=== PATIENT | male | born 1990 | race African-American/Black ===

== ENCOUNTER 2023-01-16 08:15 | Emergency (ER) | payer SELFPAY ==
--- OUTSIDE RECORDS SUMMARY | 2023-01-16 08:19 | XMS REPORT | Continuity of Care Document ---
:1990 Author Organization [facility] t Address [address] [facility] [address] [place] [address] Care Team Providers Name Role Phone PCP, PATIENT DOES NOT HAVE A Primary Care Physician Unavaila ble ANA MARIA TAVAREZ Attending Clinician Unavailable Ana Maria Perez Attending Clinician ANA MARIA TAVAREZ Admitting Clinician Unavailable Payers Payer Name Policy Type Policy Number Effective Date Expiration Date Teri thornton CIGNA II [id number] 2021 00:00:00 Problems Condition Condition Condition Status Onset Resolution Last Treating Co mments Source Name Details Category Date Date Treatment Clinician Date Left knee Left knee Disease Active Uni vers pain pain 4-05 ity of 00:00: [address] Other Other Disease Active Overview: Univer s specified specified 02-28 Formattin i ty of general general 00:00: g of this [facility] 00 note Medical examinatio examinatio might be Branch n n different from the original. Initial male exam Allergies, Adverse Reactions, Alerts Allergy Allergy Status Severity Reaction(s) Onset Inactive Treating Comm ents Source Name Type Date Date Clinician NO KNOWN Drug Active Univers ALLERGIE Class ity of S [facility] Social History Social Habit Start Date Stop Date Quantity Comments Source History of Smokes tobacco University of tobacco use daily [facility] Exposure to 2022-07-20 2022-07-30 Unable to assess Univers ity of SARS-CoV-2 00:00:00 18:25:00 [facility] (event) Branch Alcohol intake 2022-07-30 2022-07-30 0 /d University of 00:00:00 00:00:00 [facility] Sex Ass[birth year] Universit y of 00:00:00 00:00:00 [facility] Smoking Status Start Date Stop Date Source Smokes tobacco daily [facility] Medications Ordered Filled Start Stop Current Ordering Indication Dosage Frequency Signature Comments Components Source Medication Medication Date Date Medication? Clinician (SIG) Name Name NaCl 0.9% 2021-08 1000mL at 999 Uni vers (NS) bolus 2-05 12-05 mL/hr, ity of infusion 03:00: 03:34 1,000 mL, Toñito as 1,000 mL 00 :00 IV Medical Infusion, Branch ONCE, 1 dose, On 07/30/22 at 2100, STAT acetaminoph 2015- Yes 1{tbl} Take 1 Tab Univers en-codeine 4-05 by mouth ity o f (TYLENOL 10:03: every 4 [facility]3) 300-30 46 (four) Medical mg tablet hours as Branch needed. Vital Signs Vital Name Observation Time Observation Value Comments Source Systolic blood 2022-07-31 03:00:00 147 mm[Hg] Univer sity [facility] Diastolic blood 2022-07-31 03:00:00 88 [facility]Hg[facility] 2022-07-31 03:00:00 83 /min [facility] Respiratory rate 2022-07-31 03:00:00 17 /min [facility] saturation in 2022-07-31 03:00:00 98 /min [facility] Arterial blood by [facility] Pulse oximetry Branch Body height 2022-07-31 00:37:00 177.8 cm [facility] Body weight 2022-07-31 00:37:00 90.719 kg [facility] BMI 2022-07-31 00:37:00 28.70 kg/m2 [facility] Procedures Procedure Date / Time Performed Performing Clinician Sourc e XR CHEST 1 VW 2022-07-31 02:11:11 Ana Maria Tavarez [facility] TROPONIN I 2022-07-31 02:03:00 Ana Maria Tavarez [facility] COMP. METABOLIC PANEL 2022-07-31 02:03:00 Ana Maria Tavarez [facility] ([id number]) Medical Branch CBC WITH DIFF 2022-07-31 02:03:00 Ana Maria Tavarez [place] [facility] N-TERMINAL PRO-BNP 2022-07-31 02:03:00 [facility] NOTICE OF PRIVACY 2022-07-31 00:28:15 Doctor Unassigned, No Univ [facility] Name Medical Branch CONSENT/REFUSAL FOR 2022-07-31 00:26:10 Doctor Unassigned, No [facility] DIAGNOSIS AND Name Medical Branch TREATMENT Encounters Start End Encounter Admission Attending Care Care Encounter Source Date/Time Date/Time Type Type Clinicians Facility Department ID 2022-07-30 2022-07-30 Emergency X CORBY TNALMAS ERT [id number] Univers 18:40:00 21:36:00 [facility]-07-30 2022-07-30 Emergency Corby [facility] [id number] Univers 18:40:00 21:36:00 Ana Maria Williamson [facility] [id number] i [facility] [id number] [facility] [id number] [place] [id number] Branch Results Test Description Test Time Test Comments Results Result Comments Source N-TERMINAL PRO-BNP 2022-07-31 02:52:54 Test Item Value Reference Range Interpretation Comme nts NT-proBNP (test code = See_Comment [Aut omated message] The [id number]) system which ge nerated this result tra nsmitted reference range : <=125. The reference r tavo was not used to int erpret this result as sterling l/abnormal. BROCK (test code = BROCK) Biotin has been reported to cause a negative bias, interpret results relative to patient's use of biotin. Lab Interpretation (test Normal code = 40836-0) [id number]:38[facility]49 Test Item Value Reference Interpretation Comments Range TROPONIN I (test 0.003 ng/mL See_Comment [Automated code = 3852882396) message] The system which generated this result transmitted reference range : <=0.034. The reference range was not used to interpret this result as normal/abnormal . BROCK (test code = Reference (Normal) BROCK) Range (defined by the 99th percentile reference limit): <= 0.034 ng/mL Note: Cardiac troponin begins to rise 3-4 hours after the onset of ischemia. Repeat in 4-6 hours if the sample was drawn within 3-4 hours of the onset of the symptom and found normal. Diagnosis of myocardial injury is made with acute changes in cTn concentrations with at least one serial sample above the 99th percentile upper reference limit (URL), taken together with the patient's clinical presentation. Biotin has been reported to cause a negative bias, interpret results relative to patient's use of biotin. Lab Interpretation Normal (test code = 60037-8) [facility]. METABOLIC PANEL ([id number])2022-07-31 02:26:49 Test Item Value Reference Range Interpretation Comments NA (test code = 138 mmol/L 135-145 2397000328) K (test code = 4.0 mmol/L 3.5-5.0 5424533279) CL (test code = 100 mmol/L 98-108 4175230213) CO2 TOTAL (test code = 32 mmol/L 23-31 H 7130031735) AGAP (test code = 2-16 8971705740) BUN (test code = 10 mg/dL 7-23 9560893265) GLUCOSE (test code = 87 mg/dL 70-110 2683493272) CREATININE (test code = 0.96 mg/dL 0.60-1.25 2556507992) TOTAL BILI (test code = 0.5 mg/dL 0.1-1.2 2646870267) CALCIUM (test code = 10.1 mg/dL 8.6-10.6 0232023225) T PROTEIN (test code = 7.9 g/dL 6.3-8.2 3176912491) ALBUMIN (test code = 5.0 g/dL 3.5-5.0 4916009856) ALK PHOS (test code = 88 U/L 34-122 4745811304) ALTv (test code = 27 U/L 5-50 1742-6) AST(SGOT) (test code = 25 U/L 13-40 2061294960) eGFR (test code = mL/min/1.73m2 8195847040) BROCK (test code = BROCK) Association of Glomerular Filtration Rate (GFR) and Staging of Kidney Disease* + --+ --+ ------+| GFR (mL/min/1.73 m2) ?| With Kidney Damage ?| ?Without Kidney Damage+ --------+ --------+ +| ?>90 ?| ?Stage one ?| ? Normal ?+ ---+ ---+ -------+| ?60-89 ?| ?Stage two ?| ? Decreased GFR ? + --+ --+ ------+| ?30-59 ?| ?Stage three ?| ? Stage three ? + --+ --+ ------+| ?15-29 ?| ?Stage four ? | ? Stage four ?+ ---+ ---+ -------+| ?<15 (or dialysis) ? ?| ?Stage five ? | ? Stage five ?+ ---+ ---+ -------+ *Each stage assumes the associated GFR level has been in effect for at least three months. ?Stages 1 to 5, with or without kidney disease, indicate chronic kidney disease. Notes: Determination of stages one and two (with eGFR >59mL/min/1.73 m2) requires estimation of kidney damage for at least three months as defined by structural or functional abnormalities of the kidney, manifested by either:Pathological abnormalities or Markers of kidney damage (including abnormalities in the composition of the blood or urine or abnormalities in imaging tests). Lab Interpretation Abnormal (test code = 50850-9) [facility] WITH [id number] 02:12:07 Test Item Value Reference Range Interpretation Comments WBC (test code = See_Comment [Automated 3626-2) message] The sy stem which generated this result transmitted reference range : 4.20 - 10.70 10*3/?L. The reference range was not used to interpret this result as normal/abnormal . RBC (test code = See_Comment [Automated 521-8) message] The sy stem which generated this result transmitted reference range : 4.26 - 5.52 10*6/?L. The reference range was not used to interpret this result as normal/abnormal . HGB (test code = 14.4 g/dL 12.2-16.4 718-7) HCT (test code = 42.5 % 38.4-49.3 4544-3) MCV (test code = 84.3 fL 81.7-95.6 787-2) MCH (test code = 28.6 pg 26.1-32.7 785-6) MCHC (test code = 33.9 g/dL 31.2-35.0 786-4) RDW-SD (test code = 37.4 fL 38.5-51.6 L 22345-2) RDW-CV (test code = 12.1 % 12.1-15.4 788-0) PLT (test code = See_Comment [Automated 777-3) message] The sy stem which generated this result transmitted reference range : 150 - 328 10*3/ ?L. The reference r tavo was not used to interpret this result as normal/abnormal . MPV (test code = 10.0 fL 9.8-13.0 38708-7) NRBC/100 WBC (test See_Comment [Automat ed code = 1849873295) message] The system which generated this result transmitted reference range : 0.0 - 10.0 /100 WBCs. The refer ence range was not u sed to interpret th is result as normal/abnormal . NRBC x10^3 (test code See_Comment [Auto mated = 1764127309) message] The s ystem which generated this result transmitted reference range : 10*3/?L. The reference range was not used to interpret this result as normal/abnormal . GRAN MAT (NEUT) % 60.9 % (test code = 770-8) IMM GRAN % (test code 0.20 % = 1570626705) LYMPH % (test code = 29.7 % 736-9) MONO % (test code = 8.1 % 5905-5) EOS % (test code = 0.5 % 713-8) BASO % (test code = 0.6 % 706-2) GRAN MAT x10^3(ANC) 3.83 10*3/uL 1.99-6.95 (test code = 4230473523) IMM GRAN x10^3 (test 0.00-0.06 code = 1797451399) LYMPH x10^3 (test code 1.87 10*3/uL 1.09-3.23 = 731-0) MONO x10^3 (test code 0.51 10*3/uL 0.36-1.02 = 742-7) EOS x10^3 (test code = 0.03 10*3/uL 0.06-0.53 L 711-2) BASO x10^3 (test code 0.04 10*3/uL 0.01-0.09 = 704-7) Lab Interpretation Abnormal (test code = 75982-6) [facility]"
[2023-01-16 08:38] LABS: Hematocrit 43.5 % (39.6-49.0); Lymphocytes % 41.6 % (15.3-44.8); MPV 8.4 fL (7.6-11.3); RBC Red Blood Cell Count 5.05 M/uL (4.33-5.43)
[2023-01-16 08:57] LABS: Potassium 3.9 mEq/L (3.5-5.1); Troponin High Sensitivity 8.6 pg/mL (<58.9)
--- NOTE | 2023-01-16 09:30 | RAD REPORT ---
EXAM DESCRIPTION: RAD - Chest Single View - 01/16/2023 9:24 am CLINICAL HISTORY: MALAISE Chest pain. COMPARISON: CHEST SINGLE VIEW dated 02/13/2014 FINDINGS: Portable technique limits examination quality. The lungs are grossly clear. The heart is normal in size. No displaced fractures. IMPRESSION: No acute intrathoracic process suspected.
--- NOTE | 2023-01-16 09:30 | RAD REPORT ---
EXAM DESCRIPTION: CT - Head Brain Wo Cont - 01/16/2023 9:21 am CLINICAL HISTORY: NUMBNESS Headache, drowsiness, hypertension COMPARISON: No comparisons TECHNIQUE: All CT scans are performed using dose optimization technique as appropriate and may inclu de automated exposure control or mA/KV adjustment according to patient size. FINDINGS: No intracranial hemorrhage, hydrocephalus or extra-axial fluid collection.No areas of brai n edema or evidence of midline shift. The paranasal sinuses and mastoids are clear. The calvarium is intact. IMPRESSION: No acute intracranial abnormality.
--- NOTE | 2023-01-16 09:38 | EDPHYS ---
Physician Documentation [facility] Name: Garo Reece Age: 32 yrs Sex: Male : 1990 Arrival Date: 01/16/2023 Time: 08:15 Bed 5 Private MD: ED Physician Amrik Stapleton HPI: 01/16 08:20 This 32 yrs old Black Male presents to ER via Unassigned with complaints of Numbness Of jh7 Arm, High Blood Pressure. 08:20 Onset: The symptoms/episode began/occurred this morning. 32-year-old male reports that jh7 he woke up this morning with numbness of his left arm, took his blood pressure, and stated it was 190/138. Reports that he took some apple cider vinegar and felt slightly better. States that he has a history of high blood pressure but is not on any medications. Denies having a PCP. Denies chest pain, headache, and shortness of breath.. Historical: - Allergies: 08:20 No Known Allergies; aa5 - Home Meds: 08:20 None [Active]; aa5 - PMHx: 08:20 None; aa5 - PSHx: 08:20 None; aa5 - Immunization history:: Adult Immunizations unknown. - Social history:: Smoking status: Patient denies any tobacco usage or history of. ROS: 08:20 Constitutional: Negative for fever, chills, and weight loss, Eyes: Negative for injury, jh7 pain, redness, and discharge, Neck: Negative for injury, pain, and swelling, Cardiovascular: Negative for chest pain, palpitations, and edema, Respiratory: Negative for shortness of breath, cough, wheezing, and pleuritic chest pain, Abdomen/GI: Negative for abdominal pain, nausea, vomiting, diarrhea, and constipation, Back: Negative for injury and pain, MS/Extremity: Negative for injury and deformity, Skin: Negative for injury, rash, and discoloration. 08:20 Neuro: Positive for numbness, Negative for altered mental status, dizziness, gait disturbance, headache, syncope, tingling, visual changes, weakness. 08:20 All other systems are negative. Exam: 08:20 Constitutional: This is a well developed, well nourished patient who is awake, alert, jh7 and in no acute distress. Head/Face: Normocephalic, atraumatic. Eyes: Pupils equal round and reactive to light, extra-ocular motions intact. Lids and lashes normal. Conjunctiva and sclera are non-icteric and not injected. Cornea within normal limits. Periorbital areas with no swelling, redness, or edema. Neck: Trachea midline, no thyromegaly or masses palpated, and no cervical lymphadenopathy. Supple, full range of motion without nuchal rigidity, or vertebral point tenderness. No Meningismus. Cardiovascular: Regular rate and rhythm with a normal S1 and S2. No gallops, murmurs, or rubs. Normal PMI, no JVD. No pulse deficits. Respiratory: Lungs have equal breath sounds bilaterally, clear to auscultation and percussion. No rales, rhonchi or wheezes noted. No increased work of breathing, no retractions or nasal flaring. Abdomen/GI: Soft, non-tender, with normal bowel sounds. No distension or tympany. No guarding or rebound. No evidence of tenderness throughout. Back: No spinal tenderness. No costovertebral tenderness. Full range of motion. Skin: Warm, dry with normal turgor. Normal color with no rashes, no lesions, and no evidence of cellulitis. MS/ Extremity: Pulses equal, no cyanosis. Neurovascular intact. Full, normal range of motion. Neuro: Awake and alert, GCS 15, oriented to person, place, time, and situation. Cranial nerves II-XII grossly intact. Motor strength 5/5 in all extremities. Sensory grossly intact. Cerebellar exam normal. Normal gait. Vital Signs: 08:20 BP 151 / 93; Pulse 84; Resp 16 S; Temp 98.3(O); Pulse Ox 98% on R/A; Weight 92.99 kg aa5 (R); Height 5 ft. 11 in. (R); 09:11 BP 153 / 103; Pulse 73; Pulse Ox 100% ; ll1 09:46 BP 153 / 93; Pulse 67; Resp 16; Pulse Ox 97% ; bp 08:20 Body Mass Index 28.59 (92.99 kg, 180.34 cm) 5 NIH Stroke Scale Scores: 08:20 NIHSS Score: [address] [facility] MDM: 08:20 Patient medically screened. [facility] 09:36 Differential diagnosis: Acute CVA, TIA, hypertensive urgency, hypertensive emergency. [facility] Data reviewed: vital signs, nurses notes, lab test result(s), EKG, radiologic studies, CT scan, plain films. Independent interpretation of the following test(s) in the Emergency Department EKG: See my EKG interpretation above. Historians other than the Patient: Spouse/Significant Other: /girlfriend. Care significantly affected by the following chronic conditions: Hypertension. Care significantly affected by the following Social Determinants of Health: No PCP. Counseling: I had a detailed discussion with the patient and/or guardian regarding: the historical points, exam findings, and any diagnostic results supporting the discharge/admit diagnosis, the need for outpatient follow up, for definitive care, to return to the emergency department if symptoms worsen or persist or if there are any questions or concerns that arise at home. ED course: The patient remained hemodynamically stable throughout the ER visit. He reports that his symptoms improved at the time of discharge. Prescribed amlodipine 5 mg to take once daily as he schedules an appointment with the PCP. If his symptoms return, or current symptoms worsen, he may return to the ER for further eval. The patient understood the plan of care.. 01/16 08:27 Order name: Basic Metabolic Panel; Complete Time: 09:[address] [facility] 01/16 08:27 Order name: CBC with Diff; Complete Time: 09: [facility] 01/16 08:27 Order name: Troponin HS; Complete Time: 09: [facility] 01/16 08:27 Order name: XRAY Chest (1 view); Complete Time: : [facility] 01/16 09:09 Order name: CT Head Brain wo Cont; Complete Time: : [facility] 01/16 08:27 Order name: EKG; Complete Time: 08:[address] [facility] 01/16 08:27 Order name: Cardiac monitoring; Complete Time: 08:[address] [facility] 01/16 08:27 Order name: EKG - Nurse/Tech; Complete Time: :[address] [facility] 01/16 08:27 Order name: IV Saline Lock; Complete Time: :[address] [facility] 01/16 08:27 Order name: Labs collected and sent; Complete Time: 08:[address] [facility] 01/16 08:27 Order name: O2 Per Protocol; Complete Time: 08:[address] [facility] 01/16 08:27 Order name: O2 Sat Monitoring; Complete Time: 08:[address] [facility] EC:32 Rate is 66 beats/min. Rhythm is regular. QRS Assumption is Normal. AR interval is normal at [facility] 168 msec. QRS interval is normal at 100 msec. QT interval is normal at 380 msec. No Q waves. T waves are Normal. Clinical impression: NSR w/ Non-specific ST/T Changes. Administered Medications: No medications were administered Disposition Summary: 01/16/23 09:37 Discharge Ordered Location: Home [facility] Problem: new [facility] Symptoms: have improved [facility] Condition: Stable [facility] Diagnosis - Essential (primary) hypertension [facility] - Left Arm Numbness [facility] Followup: [facility] - With: Private Physician - When: 2 - 3 days - Reason: Recheck today's complaints Discharge Instructions: - Discharge Summary Sheet [facility] - Hypertension, Adult [facility] - How to Take Your Blood Pressure, [id number] [facility] - Managing Your Hypertension [facility] - Preventing Hypertension [facility] Forms: - Medication Reconciliation Form [facility] - Thank You Letter [facility] Prescriptions: - amlodipine 5 mg Oral tablet - take 1 tablet by ORAL route daily; 30 tablet; Refills: 0, Product Selection [facility] Permitted NIH Stroke Scale - NIH Stroke Score Date: 01/16/2023 Time: 08:20 Total Score = 0 10. Dysarthria (speech clarity - read or repeat words) - 0(Normal) 11. Extinction and Inattention (visual/tactile/auditory/spatial/personal) - 0(No abnormality) 1a. Level of Consciousness (LOC) - 0(Alert) 1b. Level of Consciousness (LOC) (Month \T\ Age) - 0(Both) 1c. LOC Commands (Open \T\ Closes Eyes/Software Implementation Project Manager) - 0(Both) 2. Best Gaze (Lateral Gaze Paresis) - 0(Normal) 3. Visual Field Loss - 0(No visual loss) 4. Facial Palsy - 0(Normal) 5a. Left Arm: Motor (10-second hold) - 0(No drift) 5b. Right Arm: Motor (10-second hold) - 0(No drift) 6a. Left Leg: Motor (5-second hold - always test supine) - 0(No drift) 6b. Right Leg: Motor (5-second hold - always test supine) - 0(No drift) 7. Limb Ataxia (finger/nose \T\ heel/lin - test with eyes open) - 0(Absent) 8. Sensory Loss (pinprick arms/legs/face) - 0(Normal) 9. Best Language: Aphasia (description/naming/reading) - 0(No aphasia) Initials: jh7 Signatures: Dispatcher [employer] Elizabeth Diaz, RN RN aa5 Ernestina Rosen, OPEN HEARTH MELTER OPEN HEARTH MELTER jh7
--- NOTE | 2023-01-16 09:38 | ER ---
Nurse's Notes [facility] Name: Garo Reece Age: 32 yrs Sex: Male : 1990 Arrival Date: 01/16/2023 Time: 08:15 Bed 5 Private MD: Diagnosis: Essential (primary) hypertension;Left Arm Numbness Presentation: 01/16 08:20 Chief complaint: Patient states: "I woke up with my left arm feeling numb so I checked aa5 my blood pressure and it was high". pt reports systolic BP 190 at home. 08:20 Onset of symptoms was January 16, 2023. aa5 08:20 Acuity: CHINO 3 aa5 08:20 Method Of Arrival: Ambulatory aa5 08:20 Coronavirus screen: At this time, the client does not indicate any symptoms associated aa5 with coronavirus-19. Ebola Screen: Patient denies travel to an Ebola-affected area in the 21 days before illness onset. Initial Sepsis Screen: Does the patient meet any 2 criteria? No. Patient's initial sepsis screen is negative. Does the patient have a suspected source of infection? No. Patient's initial sepsis screen is negative. Risk Assessment: Do you want to hurt yourself or someone else? Patient reports no desire to harm self or others. Triage Assessment: 08:20 General: Appears in no apparent distress. Behavior is cooperative, appropriate for age, bp anxious. Pain: Denies pain. EENT: No deficits noted. Neuro: No deficits noted. Cardiovascular: No deficits noted. Respiratory: No deficits noted. GI: No signs and/or symptoms were reported involving the gastrointestinal system. : No signs and/or symptoms were reported regarding the genitourinary system. Derm: No deficits noted. Musculoskeletal: No deficits noted. Historical: - Allergies: 08:20 No Known Allergies; aa5 - Home Meds: 08:20 None [Active]; aa5 - PMHx: 08:20 None; aa5 - PSHx: 08:20 None; aa5 - Immunization history:: Adult Immunizations unknown. - Social history:: Smoking status: Patient denies any tobacco usage or history of. Screenin:20 [facility] ED Fall Risk Assessment (Adult) History of falling in the last 3 months, bp including since admission No falls in past 3 months (0 pts). Abuse screen: Denies threats or abuse. Denies injuries from another. Nutritional screening: No deficits noted. Tuberculosis screening: No symptoms or risk factors identified. Assessment: 08:20 General: SEE TRIAGE NOTE. bp 09:47 Reassessment: DC HOME AMBULATORY WITH FAMILY. bp Vital Signs: 08:20 BP 151 / 93; Pulse 84; Resp 16 S; Temp 98.3(O); Pulse Ox 98% on R/A; Weight 92.99 kg aa5 (R); Height 5 ft. 11 in. (R); 09:11 BP 153 / 103; Pulse 73; Pulse Ox 100% ; ll1 09:46 BP 153 / 93; Pulse 67; Resp 16; Pulse Ox 97% ; bp 08:20 Body Mass Index 28.59 (92.99 kg, 180.34 cm) aa5 NIH Stroke Scale Scores: 08:20 NIHSS Score: 0 [facility] ED Course: 08:18 Patient arrived in ED. am2 08:18 Jose Dunlap, RN is Primary Nurse. [facility] 08:20 Ernestina Rosen FNP is PHCP. 7 08:20 Amrik Stapleton MD is Attending Physician. 7 08:20 Arm band placed on Patient placed in an exam room, on a stretcher. aa5 08:20 Patient has correct armband on for positive identification. Bed in low position. Call bp light in reach. Side rails up X2. Adult w/ patient. 08:20 Inserted saline lock: 20 gauge in right forearm, using aseptic technique. Blood bp collected. 08:29 Triage completed. aa5 09:22 CT Head Brain wo Cont In Process Unspecified. EDMS 09:26 XRAY Chest (1 view) In Process Unspecified. EDMS 09:47 No provider procedures requiring assistance completed. IV discontinued, intact, bp bleeding controlled, No redness/swelling at site. Pressure dressing applied. Administered Medications: No medications were administered Medication: 08:20 VIS not applicable for this client. bp Outcome: 09:37 Discharge ordered by . jh7 09:47 Discharged to home ambulatory, with family. bp 09:47 Condition: stable 09:47 Discharge instructions given to patient, Instructed on discharge instructions, follow up and referral plans. medication usage, Demonstrated understanding of instructions, follow-up care, medications, Prescriptions given X 1. 09:47 Patient left the ED. bp NIH Stroke Scale - NIH Stroke Score Date: 01/16/2023 Time: 08:20 Total Score = 0 10. Dysarthria (speech clarity - read or repeat words) - 0(Normal) 11. Extinction and Inattention (visual/tactile/auditory/spatial/personal) - 0(No abnormality) 1a. Level of Consciousness (LOC) - 0(Alert) 1b. Level of Consciousness (LOC) (Month \\T\\ Age) - 0(Both) 1c. LOC Commands (Open \\T\\ Closes Eyes/Residential Treatment Specialist) - 0(Both) 2. Best Gaze (Lateral Gaze Paresis) - 0(Normal) 3. Visual Field Loss - 0(No visual loss) 4. Facial Palsy - 0(Normal) 5a. Left Arm: Motor (10-second hold) - 0(No drift) 5b. Right Arm: Motor (10-second hold) - 0(No drift) 6a. Left Leg: Motor (5-second hold - always test supine) - 0(No drift) 6b. Right Leg: Motor (5-second hold - always test supine) - 0(No drift) 7. Limb Ataxia (finger/nose \\T\\ heel/lin - test with eyes open) - 0(Absent) 8. Sensory Loss (pinprick arms/legs/face) - 0(Normal) 9. Best Language: Aphasia (description/naming/reading) - 0(No aphasia) Initials: 7 Signatures: Dispatcher [employer] Elizabeth Diaz, RN RN aa5 Jose Dunlap RN RN jb4 Estephania Sena am2 Brennon Stevens RN RN bp Ct Goldsmith RN RN ll1 Ernestina Rosen, STEFANIE [employer]OL [employer]ILING MACHINE SET UP OPERATOR 7
[2023-01-16 09:54] VITALS: TEMP 98.3
[2023-01-16 09:56] VITALS: BP 153/93; O2SAT 97
--- NOTE | 2023-01-17 04:57 | EKG ---
Test Date: 2023-01-16 Test Time: 08:32:26 Supervisor Power Reactor: PRADEEP MEASUREMENT RESULTS: Intervals: Rate: 66 KS: 168 QRSD: 100 QT: 380 QTc: 398 [place]: P: 38 KS: 168 QRS: 51 T: 22 INTERPRETIVE STATEMENTS: Normal sinus rhythm Nonspecific ST abnormality Abnormal ECG Compared to ECG 02/13/2014 13:45:39 ST (T wave) deviation now present Sinus bradycardia no longer present Early repolarization no longer present Electronically Signed On 01-17-23 04:54:10 CDT by Gage Buck
== END 2023-01-16 09:47 | disposition home or self-care (01) ==
LOC: ER 08:15
DX: I10 Essential (primary) hypertension (principal)
CPT/HCPCS: 36415; 70450; 71045; 80048; 84484; 85025; 93005

== ENCOUNTER 2024-07-29 17:11 | Emergency (ER) | payer OTHER, SELFPAY ==
[2024-07-29 18:07] LABS: Absolute Basophils 0.1 K/uL (0-0.5); Absolute Eosinophils 0.2 K/uL (0-0.5); Absolute Lymphocytes (CBC) 2.3 K/uL (0.7-4.9); Absolute Monocytes 0.7 K/uL (0.1-1.3); Absolute Neutrophil 3.4 K/uL (1.8-8.0); Basophils % 1.1 % (0-1.3); Eosinophils % 2.6 % (0-4.4); Hematocrit 43.6 % (39.6-49.0); Hemoglobin 14.7 g/dL (13.6-17.9); Lymphocytes % 34.7 % (15.3-44.8); MCHC 33.6 g/dL (32.0-36.0); MCV 86.4 fL (80-100); MPV 8.3 fL (7.6-11.3); Monocytes % 10.2 % (3.3-12.3); Neutrophils % 51.4 % (41.7-73.7); Nucleated Red Blood Cells % 0.2 % (0-0); Platelets 220 thou/uL (152-406); RBC Red Blood Cell Count 5.04 M/uL (4.33-5.43)
--- NOTE | 2024-07-29 18:16 | RAD REPORT ---
EXAM: CT brain without contrast HISTORY: HEADACHE COMPARISON: 01/16/2023 TECHNIQUE: Multiple contiguous axial images were obtained and a CT of the brain without contrast. Sag ittal and coronal reformats were performed. One or more of the following dose reduction techniques were used: Automated exposure control, adjust ment of the mA and/or kV according to patient size, and/or iterative reconstruction. FINDINGS: No evidence of hydrocephalus, intracranial hemorrhage, or extra-axial fluid collection. The brain is normal in morphology. No evidence of midline shift or areas of brain edema. The calvarium is intact. Mild polypoid mucosal thickening noted in the paranasal sinuses. IMPRESSION: No evidence of acute intracranial abnormality.
[2024-07-29 18:24] LABS: Albumin 3.8 g/dL (3.4-5.0); Anion Gap 9.7 mEq/L (5.0-15.0); Bilirubin Total 0.4 mg/dL (0.2-1.0); Globulin 3.9 g/dL (2.3-3.5); Potassium 3.7 mEq/L (3.5-5.1); Protein, Total 7.7 g/dL (6.4-8.2)
[2024-07-29] MEDS ORDERED: KETOROLAC 30 MG/ML INJ ONE (18:42)
[2024-07-29] MEDS ORDERED: DIPHENHYDRAMINE 50 MG/ML VIAL ONE (18:42)
[2024-07-29] MEDS ORDERED: METOCLOPRAMIDE 10 MG/2mL INJ ONE (18:42)
[2024-07-29] MEDS ORDERED: dexAMETHasone 10 MG/ML VIAL ONE (18:42)
[2024-07-29] MEDS ORDERED: NA CHLORIDE 0.9% 1,000 ML ONE (18:43)
--- NOTE | 2024-07-29 19:16 | ER ---
Nurse's Notes [facility] Name: Garo Reece Age: 34 yrs Sex: Male : 1990 Arrival Date: 07/29/2024 Time: 17:11 Bed 13 Private MD: Diagnosis: Epistaxis;Headache;Essential (primary) hypertension Presentation: 07/29 17:24 Chief complaint: Patient states: intermittent nose bleeds and headaches x1 week. kc6 reports hx of HTN. Coronavirus screen: At this time, the client does not indicate any symptoms associated with coronavirus-19. Ebola Screen: No symptoms or risks identified at this time. Initial Sepsis Screen: Does the patient meet any 2 criteria? No. Patient's initial sepsis screen is negative. Does the patient have a suspected source of infection? No. Patient's initial sepsis screen is negative. Risk Assessment: Do you want to hurt yourself or someone else? Patient reports no desire to harm self or others. Onset of symptoms was July 29, 2024. 17:24 Method Of Arrival: Ambulatory [facility] 17:24 Acuity: CHINO 3 kc6 Triage Assessment: 17:25 Headache History: The patient has had previous headaches and this one is more severe kc6 than previous episodes. General: Appears in no apparent distress. comfortable, well groomed, well developed, Behavior is calm, cooperative, appropriate for age. Pain: Complains of pain in right temporal area Pain currently is 8 out of 10 on a pain scale. Pain began x1 week Also complains of. Neuro: Level of Consciousness is awake, alert, obeys commands, Oriented to person, place, time, situation, Appropriate for age. Historical: - Allergies: 17:25 No Known Allergies; kc6 - Home Meds: 17:25 None [Active]; kc6 - PMHx: 17:25 Hypertensive disorder; kc6 - PSHx: 17:25 None; kc6 - Immunization history:: Adult Immunizations up to date. - Infectious Disease History:: Denies. - Social history:: Smoking status: Patient denies any tobacco usage or history of. Screenin:58 [facility] ED Fall Risk Assessment (Adult) History of falling in the last 3 months, tm6 including since admission No falls in past 3 months (0 pts) Confusion or Disorientation No (0 pts) Intoxicated or Sedated No (0 pts) Impaired Gait No (0 pts) Mobility Assist Device Used No (0 pt) Altered Elimination No (0 pt) Score/Fall Risk Level 0 - 2 = Low Risk Oriented to surroundings, Maintained a safe environment, Educated pt \T\ family on fall prevention, incl call for assistance when getting out of bed. Abuse screen: Denies threats or abuse. Denies injuries from another. Nutritional screening: No deficits noted. Tuberculosis screening: No symptoms or risk factors identified. Assessment: 18:11 General: Appears in no apparent distress. uncomfortable, Behavior is calm, cooperative. tm6 Pain: Complains of pain in head Pain currently is 5 out of 10 on a pain scale. Pain began 2-3 days ago. Neuro: Level of Consciousness is awake, alert, obeys commands, Oriented to person, place, time, situation. Cardiovascular: Patient's skin is warm and dry. Respiratory: Airway is patent Respiratory effort is even, unlabored, Respiratory pattern is regular, symmetrical. 18:50 Reassessment: Patient and/or family updated on plan of care and expected duration. Pain tm6 level reassessed. Patient is alert, oriented x 3, equal unlabored respirations, skin warm/dry/pink. 19:57 Reassessment: Patient and/or family updated on plan of care and expected duration. Pain tm6 level reassessed. Patient is alert, oriented x 3, equal unlabored respirations, skin warm/dry/pink. Vital Signs: 17:24 BP 144 / 105; Pulse 88; Resp 19 S; Pulse Ox 96% on R/A; Weight 99.79 kg (R); Height 5 kc6 ft. 11 in. (R); Pain 8/10; 18:50 BP 159 / 100; Pulse 87; Pulse Ox 97% on R/A; MAP 116 mmHg; Pain 9/10; tm6 19:58 BP 146 / 102; Pulse 81; Resp 17; Temp 97.3; Pulse Ox 98% on R/A; MAP 115 mmHg; Pain tm6 0/10; 17:24 Body Mass Index 30.68 (99.79 kg, 180.34 cm) kc6 17:24 Pain Scale: Adult kc6 18:50 Pain Scale: Adult tm6 19:58 Pain Scale: Adult tm6 ED Course: 17:16 Patient arrived in ED. ra3 17:18 Chantelle Vega [facility]-C [facility]. kb 17:18 Triston Greer MD is Attending Physician. kb 17:25 Triage completed. kc6 17:25 Arm band placed on. kc6 17:26 Patient has correct armband on for positive identification. Adult w/ patient. Pulse ox kc6 on. NIBP on. 17:26 Patient maintains SpO2 saturation greater than 95% on room air. kc6 17:52 Alejandra Diaz, RN is Primary Nurse. tm6 18:01 CMP Sent. tm6 18:01 CBC with Diff Sent. tm6 18:01 Inserted saline lock: 20 gauge in right antecubital area, using aseptic technique. tm6 Blood collected. Flushed with 10 mL NS. 18:12 CT Head Brain wo Cont In Process Unspecified. EDMS 19:58 Provided Education on: follow up with PCP for BP. tm6 19:58 No provider procedures requiring assistance completed. IV discontinued, intact, tm6 bleeding controlled, No redness/swelling at site. Pressure dressing applied. Administered Medications: 18:50 Drug: diphenhydrAMINE IVP 12.5 mg IVP once Route: IVP; Site: right antecubital; tm6 19:57 Follow up: Response: No adverse reaction tm6 18:50 Drug: Ketorolac IVP 15 mg IVP once Route: IVP; Site: right antecubital; tm6 19:57 Follow up: Response: No adverse reaction tm6 18:50 Drug: Decadron - Dexamethasone IVP 10 mg IVP once Route: IVP; Site: right antecubital; tm6 19:57 Follow up: Response: No adverse reaction tm6 18:51 Drug: NS 0.9% IV 1000 ml IV at 1000 ml once; to be given as a bolus over 60 minutes tm6 Route: IV; Rate: 1000 ml; Site: right antecubital; 19:57 Follow up: Response: No adverse reaction; IV Status: Completed infusion; IV Intake: tm6 1000ml 18:51 Drug: metoCLOPramide IVP 10 mg IVP once; over 1 to 2 minutes Route: IVP; Site: right tm6 antecubital; 19:57 Follow up: Response: No adverse reaction tm6 Medication: 19:59 VIS not applicable for this client. tm6 Intake: 19:57 IV: 1000ml; Total: 1000ml. tm6 Outcome: 19:16 Discharge ordered by MD. [place] 19:58 Discharged to home ambulatory, with family, tm6 19:58 Condition: stable 19:58 Discharge instructions given to patient, family, Instructed on discharge instructions, follow up and referral plans. Demonstrated understanding of instructions, follow-up care, 19:59 Patient left the ED. tm6 Signatures: Dispatcher [employer] EDMS Chantelle Vega, Josefina Felipe RN RN kc6 Alejandra Diaz RN RN tm6 Nay Shukla 3
--- NOTE | 2024-07-29 19:16 | EDPHYS ---
Physician Documentation [facility] Name: Garo Reece Age: 34 yrs Sex: Male : 1990 Arrival Date: 07/29/2024 Time: 17:11 Bed 13 Private MD: ED Physician Triston Greer HPI: 07/29 18:14 This 34 yrs old Black Male presents to ER via Ambulatory with complaints of Nose Bleed, kb Headache. 18:14 Patient is a 34-year-old male who presents for intermittent headache and nosebleeds for kb 1 week. Currently has no bleeding but reports headache 8 out of 10. Patient reports history of migraines with similar pain but this pain is worse. Denies fever, nausea and vomiting. Reports history of high blood pressure but has not been prescribed any medications.. Historical: - Allergies: 17:25 No Known Allergies; kc6 - Home Meds: 17:25 None [Active]; kc6 - PMHx: 17:25 Hypertensive disorder; kc6 - PSHx: 17:25 None; kc6 - Immunization history:: Adult Immunizations up to date. - Infectious Disease History:: Denies. - Social history:: Smoking status: Patient denies any tobacco usage or history of. ROS: 18:14 Constitutional: As per HPI kb Exam: 18:14 Constitutional: This is a well developed, well nourished patient who is awake, alert, kb and in no acute distress. Head/Face: Normocephalic, atraumatic. ENT: Moist Mucous membranes Cardiovascular: Regular rate Respiratory: Respirations even and unlabored. No increased work of breathing. Talking in full sentences Skin: Warm, dry with normal turgor. Normal color. MS/ Extremity: Pulses equal, no cyanosis. Neurovascular intact. Full, normal range of motion. Neuro: Awake and alert, GCS 15, oriented to person, place, time, and situation. Vital Signs: 17:24 BP 144 / 105; Pulse 88; Resp 19 S; Pulse Ox 96% on R/A; Weight 99.79 kg (R); Height 5 kc6 ft. 11 in. (R); Pain 8/10; 18:50 BP 159 / 100; Pulse 87; Pulse Ox 97% on R/A; MAP 116 mmHg; Pain 9/10; tm6 19:58 BP 146 / 102; Pulse 81; Resp 17; Temp 97.3; Pulse Ox 98% on R/A; MAP 115 mmHg; Pain tm6 0/10; 17:24 Body Mass Index 30.68 (99.79 kg, 180.34 cm) kc6 17:24 Pain Scale: Adult kc6 18:50 Pain Scale: Adult tm6 19:58 Pain Scale: Adult tm6 MDM: 17:18 Medical Screening Exam initiated kb 18:16 Data reviewed: vital signs, nurses notes. kb 19:13 Differential diagnosis: foreign body - resolved, foreign body - unresolved, epistaxis kb r/t trauma, spontaneous epistaxis, anemia. Counseling: I had a detailed discussion with the patient and/or guardian regarding the historical points, exam findings, and any diagnostic results supporting the discharge/admit diagnosis, lab results, radiology results, the need for outpatient follow up, a family practitioner, to return to the emergency department if symptoms worsen or persist or if there are any questions or concerns that arise at home. Response to treatment: the patient's symptoms have markedly improved after treatment. Special discussion: I have referred the patient to see his PCP for further evaluation of high blood pressure. 19:16 ED course: Pt educated on keeping blood pressure log and following up with PCP for HTN kb management. Verbal understanding received. . 07/29 17:31 Order name: CBC with Diff; Complete Time: 18:17 kb 07/29 17:31 Order name: CMP; Complete Time: 18:28 kb 07/29 17:31 Order name: CT Head Brain wo Cont; Complete Time: 18:17 kb 07/29 17:31 Order name: IV Start; Complete Time: 18:01 kb Administered Medications: 18:50 Drug: diphenhydrAMINE IVP 12.5 mg IVP once Route: IVP; Site: right antecubital; tm6 19:57 Follow up: Response: No adverse reaction tm6 18:50 Drug: Ketorolac IVP 15 mg IVP once Route: IVP; Site: right antecubital; tm6 19:57 Follow up: Response: No adverse reaction tm6 18:50 Drug: Decadron - Dexamethasone IVP 10 mg IVP once Route: IVP; Site: right antecubital; tm6 19:57 Follow up: Response: No adverse reaction tm6 18:51 Drug: NS 0.9% IV 1000 ml IV at 1000 ml once; to be given as a bolus over 60 minutes tm6 Route: IV; Rate: 1000 ml; Site: right antecubital; 19:57 Follow up: Response: No adverse reaction; IV Status: Completed infusion; IV Intake: tm6 1000ml 18:51 Drug: metoCLOPramide IVP 10 mg IVP once; over 1 to 2 minutes Route: IVP; Site: right tm6 antecubital; 19:57 Follow up: Response: No adverse reaction tm6 Disposition Summary: 07/29/24 19:16 Discharge Ordered Notes: Location: Home kb Condition: Stable kb Diagnosis - Epistaxis kb - Headache kb - Essential (primary) hypertension kb Followup: kb - With: Emergency Department - When: As needed - Reason: Worsening of condition Followup: kb - With: Private Physician - When: 2 - 3 days - Reason: Recheck today's complaints, Continuance of care, Re-evaluation by your physician Discharge Instructions: - Discharge Summary Sheet kb - Hypertension, Adult, [id number] kb - General Headache Without Cause, [id number] kb - Nosebleed, Adult, [id number] kb Forms: - Medication Reconciliation Form kb - Antibiotic Education kb - Prescription Opioid Use kb - Patient Portal Instructions kb - Leadership Thank You Letter kb Signatures: Dispatcher [employer] Chantelle Whittaker, LEEANNA SANTANAP-Josefina Hooker, RN RN kc6 Alejandra Diaz RN RN tm6
[2024-07-30 01:53] VITALS: BP 146/102; TEMP 97.3; O2SAT 98
== END 2024-07-29 19:59 | disposition home or self-care (01) ==
LOC: ER 17:11
DX: R04.0 Epistaxis (principal); R51.9 Headache, unspecified; I10 Essential (primary) hypertension
CPT/HCPCS: 96361; 85025; 36415; 80053; 70450; 96375; 96374; 99284; J2765; J1200; J1100; J7030